=== PATIENT | female | born 1990 | race Caucasian/White ===

== ENCOUNTER 2018-03-08 13:25 | Emergency (ER) | payer SELFPAY ==
[~2018-03-08] VITALS: Ht 162.6 cm; Wt 77.1 kg
[~2018-03-08 13:25] MED LIST: ACET-6134 PO; GABA100C PO; METH500T14 PO
[2018-03-08 13:27] VITALS: BP 111/71
--- NOTE | 2018-03-08 13:32 | NUR ---
PT AMBULATES TO BED 7
--- NOTE | 2018-03-08 13:38 | NUR ---
27 Y/O F W/C/O ABD PAIN ON THE RUQ TO THE R FLANK. PT STATES N/V SINCE YESTERDAY. STATES SHE WAS AT HER PCP TODAY AND THEY TOLD HER TO COME HERE. PT TOOK EXTRA STRENGTH TYLENOL AT 1200 [address] [employer]. SKIN IS INTACT, PINK/WARM/DRY; AAOX4, PERRL, WITH EVEN AND STEADY GAIT; LUNGS CLEAR BL, BREATHING UNLABORED; HR EVEN AND REGULAR, BL PERIPHERAL PULSES PRESENT; BS ACTIVE X4, NO TENDERNESS TO PALPATION, NO HEPATOSPLENOMEGALLY PALPATED, RESONANT TO PERCUSSION; PT DENIES ANY FEVER, CP, SOB, OR COUGH AT THIS TIME; PT STATES 10/10 PAIN AT THIS TIME; VSS; PATIENT POSITIONED FOR COMFORT; HOB ELEVATED; BEDRAILS UP X2; BED DOWN. RX: TRAMADOL HX: GERD, ANEMIA ALLERGIES: PREDNISONE
[2018-03-08 13:54] LABS: APPEARANCE,URINE HAZY (CLEAR); COLOR,URINE YELLOW (YELLOW)
[2018-03-08 13:55] LABS: BLOOD, URINE 1+ (NEGATIVE); UGLUCOSE NEGATIVE (NEGATIVE)
--- NOTE | 2018-03-08 13:55 | NUR ---
Patient being evaluated by physician at bedside.
[2018-03-08 13:56] LABS: BILIRUBIN,URINE NEGATIVE (NEGATIVE); LEUKOCYTE ESTERASE ,URINE NEGATIVE (NEGATIVE); NITRITE, URINE NEGATIVE (NEGATIVE)
[2018-03-08 13:59] LABS: BARBITURATE, URINE NEG. ng/ml (NEG <=200); BENZODIAZEPINE, URINE NEG. ng/mL (NEG <=200); CANNABINOID, URINE NEG. ng/mL (NEG <=50); COCAINE, URINE NEG. ng/mL (NEG <=300); OPIATE, URINE NEG. ng/mL (NEG <=2000); PHENCYCLIDINE SCREEN,URINE NEG. ng/mL (NEG <=25)
[2018-03-08 14:07] LABS: RBC,URINE 3-10 (FEW) /HPF (0-5); WBC,URINE 0-5 (RARE) /HPF (0-5)
[2018-03-08] MEDS ORDERED: NACL 0.9% 1,000 ML IV ONE (14:14)
[2018-03-08] MEDS ORDERED: NACL 0.9% 1,000 ML IV SCH (14:14)
[2018-03-08] MEDS ORDERED: KETOROLAC 30 MG/ML VIAL IVP ONE (14:15)
[2018-03-08] MEDS ORDERED: ONDANSETRON 4 MG/2 ML VIAL IVP ONE (14:15)
[2018-03-08] MEDS ORDERED: MORPHINE SULFATE 4 MG/ML SYR IVP ONE (14:15)
--- NOTE | 2018-03-08 14:28 | NUR ---
PT TAKEN TO XRAY AND CT VIA [facility]
--- NOTE | 2018-03-08 14:34 | NUR ---
PT RETURNED FROM RADIOLOGY
--- NOTE | 2018-03-08 14:41 | NUR ---
MORGAN AT BEDSIDE FOR IV AND LABS TO BE DRAWN.
[2018-03-08 14:56] LABS: BASOPHILS % (AUTO) 0.4 % (0.0-2.0); EOSINOPHILS % (AUTO) 0.3 % (0.0-4.0); HEMOGLOBIN 9.5 g/dL (12.0-16.0); LYMPHOCYTES # (AUTO) 0.8 K/uL (2.5-16.5); LYMPHOCYTES % (AUTO) 7.8 % (20.5-51.1); MEAN CORPUSCULAR HEMOGLOBIN 19 pg (27-31); MEAN CORPUSCULAR HGB CONC 30 g/dL (33-37); MEAN CORPUSCULAR VOLUME 64.6 fL (80-94); MONOCYTES # (AUTO) 0.4 K/uL (0.8-1.0); MONOCYTES % (AUTO) 3.7 % (1.7-9.3); NEUTROPHILS # (AUTO) 8.9 K/uL (1.8-7.7); NEUTROPHILS % (AUTO) 87.8 % (42.2-75.2); PLATELET COUNT (AUTO) 333 K/uL (140-450); RED BLOOD CELL COUNT(AUTO) 4.96 MIL/uL (4.20-5.40); RED CELL DISTRIBUTION WIDTH 18.4 % (11.6-13.7); WHITE BLOOD COUNT (AUTO) 10.1 K/uL (4.8-10.8)
[2018-03-08 15:14] LABS: ALBUMIN 4.1 g/dL (3.4-5.0); CARBON DIOXIDE 26.8 mmol/L (21-32); CREATININE 0.7 mg/dL (0.6-1.3); POTASSIUM 3.8 mmol/L (3.5-5.1); TOTAL BILIRUBIN 0.7 mg/dL (0.0-1.0)
[2018-03-08] MEDS ORDERED: HYDROmorphone 1 MG/ML AMP IVP ONE (15:55)
--- NOTE | 2018-03-08 16:00 | NUR ---
PT STATED THE PAIN RELEASED A LITTLE WHILE, BUT CAME BACK AGAIN, 12/10 AT THIS TIME, MD MADE AWARE, WILL MEDICATED.
[2018-03-08] MEDS ORDERED: cefTRIAXone 1,000 MG VIAL ONE (16:06)
[2018-03-08] MEDS ORDERED: HYDROmorphone PFS 2 MG/ML SYR ONE (16:34)
[2018-03-08 16:52] VITALS: BP 117/74
--- NOTE | 2018-03-08 16:52 | NUR ---
Patient discharged with v/s stable. Written and verbal after care instructions given and explained. Patient alert, oriented and verbalized understanding of instructions. Ambulatory with steady gait. All questions addressed prior to discharge. ID band removed. Patient advised to follow up with PMD. Rx of DOXYCYCLINE, TRAMADOL given. Patient educated on indication of medication including possible reaction and side effects. Opportunity to ask questions provided and answered.
== END 2018-03-08 16:52 | disposition home or self-care (01) ==
LOC: MED 13:25
DX: G89.29 Other chronic pain (principal); N73.9 Female pelvic inflammatory disease, unspecified; R11.2 Nausea with vomiting, unspecified; K21.9 Gastro-esophageal reflux disease without esophagitis; Z90.49 Acquired absence of other specified parts of digestive tract; Z88.8 Allergy status to other drugs, medicaments and biological substances; Z79.899 Other long term (current) drug therapy
CPT/HCPCS: 36415; 74176; 80053; 80305; 81001; 81025; 82150; 83690; 85025; 87086; 96361; 96365; 96375; 99285; J0696; J1170; J1885; J2270; J2405; J7030; J7060

== ENCOUNTER 2018-04-29 13:02 | Emergency (ER) | payer SELFPAY ==
[~2018-04-29] VITALS: Ht 162.6 cm; Wt 78.5 kg
[2018-04-29 13:30] VITALS: BP 116/83
--- NOTE | 2018-04-29 13:31 | NUR ---
PT AMBULATES TO BED 12
[2018-04-29] MEDS ORDERED: KETOROLAC 60 MG/2 ML VIAL IM ONE (13:40)
--- NOTE | 2018-04-29 13:58 | NUR ---
PATIENT REFUSED TORADOL MEDS. PER PATIENT,TORADOL FLARES UP HER UPSET STOMACH. ERMD MADE AWARE. DR. DUTTA WILL TALK TO PATIENT.
--- NOTE | 2018-04-29 15:00 | NUR ---
PT. RESTING COMFORTABL YIN BED , RR EVEN AND UNLABORED. HOB ELEVATED. WILL CONTINUE TO MONITOR.
[2018-04-29] MEDS ORDERED: MORPHINE SULFATE 4 MG/ML SYR IM ONE (15:30)
[2018-04-29 16:38] VITALS: BP 116/84
--- NOTE | 2018-04-29 16:38 | NUR ---
Patient discharged with v/s stable. Written and verbal after care instructions given and explained. Patient alert, oriented and verbalized understanding of instructions. Ambulatory with steady gait. All questions addressed prior to discharge. ID band removed. Patient advised to follow up with PMD. Rx of TRAMADOL 50MG , VALIUM 5MG given. Patient educated on indication of medication including possible reaction and side effects. Opportunity to ask questions provided and answered.
== END 2018-04-29 16:38 | disposition home or self-care (01) ==
LOC: MED 13:02
DX: M54.41 Lumbago with sciatica, right side (principal); F41.9 Anxiety disorder, unspecified; K21.9 Gastro-esophageal reflux disease without esophagitis; Z79.899 Other long term (current) drug therapy; Z79.1 Long term (current) use of non-steroidal anti-inflammatories (NSAID); Z90.49 Acquired absence of other specified parts of digestive tract; Z98.890 Other specified postprocedural states; Z88.8 Allergy status to other drugs, medicaments and biological substances
CPT/HCPCS: 81002; 81025; 96372; 99283; J2270; J1885

== ENCOUNTER 2018-10-01 16:00 | Emergency (ER) | payer SELFPAY ==
[~2018-10-01] VITALS: Ht 162.6 cm; Wt 76.8 kg
[2018-10-01 16:02] VITALS: BP 133/81
--- NOTE | 2018-10-01 16:10 | NUR ---
27/F BIB FAMILY C/O RLQ PAIN X3 DAYS. PT REPORTS CONSTANT SHARP/THROBING PAIN THAT RADIATES ACROSS ABD, PT HAS BEEN TX WITH TYLENOL W/ NO RELIEF. PT SAW PCP ON WEDNESDAY, PT HAD CT AND ULTRASOUND AND WAS TOLD SHE HAS OVARIAN CYST.MEDHX:GERD, OVARIAN CYST. PATIENT STATES PAIN OF 8/10 AT THIS TIME;PATIENT POSITIONED FOR COMFORT; HOB ELEVATED; BEDRAILS UP X2; BED DOWN. ER MD MADE AWARE OF PT STATUS.
[2018-10-01] MEDS ORDERED: IBUPROFEN 800 MG TAB PO ONE (16:30)
[2018-10-01] MEDS ORDERED: traMADol 50 MG TAB PO ONE (16:40)
[2018-10-01 17:10] VITALS: BP 112/76
--- NOTE | 2018-10-01 17:10 | NUR ---
Patient discharged with v/s stable. Written and verbal after care instructions given and explained. Patient alert, oriented and verbalized understanding of instructions. Ambulatory with steady gait. All questions addressed prior to discharge. ID band removed. Patient advised to follow up with PMD. Rx of TRAMADOL, MINERAL OIL, AND LACTULOSE given. Patient educated on indication of medication including possible reaction and side effects. Opportunity to ask questions provided and answered.
== END 2018-10-01 17:10 | disposition home or self-care (01) ==
LOC: MED 16:00
DX: R10.31 Right lower quadrant pain (principal); R11.10 Vomiting, unspecified; K21.9 Gastro-esophageal reflux disease without esophagitis; Z88.8 Allergy status to other drugs, medicaments and biological substances
CPT/HCPCS: 74022; 81002; 81025; 99283; Q0092